=== PATIENT | male | born 1995 | race African-American/Black ===

== ENCOUNTER 2020-03-21 09:29 | Emergency (ER) | payer OTHER, SELFPAY ==
[2020-03-21] MEDS ORDERED: Haloperidol 1 MG TAB ONE (10:03)
[2020-03-21 10:25] LABS: #Lymphocytes 1.2 thou/uL (1.20-3.40); #Monocytes 0.5 thou/uL (0.11-0.59); #Neutrophils 4.5 thou/uL (1.40-6.50); %Basophils 0.4 % (0.0-1.0); %Eosinophils 0.6 % (0.0-10.0); %Lymphocytes 18.4 % (21.0-51.0); %Monocytes 8.6 % (0.0-10.0); %Neutrophils 72.1 % (42.0-75.0); Hemoglobin 14.1 g/dL (14.0-18.0); Mean Corpuscular HGB CONC 34.2 g/dL (32.0-36.0); Mean Corpuscular Hemoglobin 33.7 pg (27.0-31.0); Mean Corpuscular Volume 98.5 fL (78.0-98.0); Mean Platelet Volume 7.4 fL (7.4-10.4); Platelet Count 141 thou/uL (130-400); RBC Distribution Width 11.5 % (11.5-14.5); Red Blood Cell (RBC) Count 4.19 mill/uL (4.70-6.10); White Blood Cell (WBC) Count 6.3 thou/uL (4.8-10.8)
[2020-03-21 11:02] LABS: ALT (SGPT) 40 U/L (8-55); AST (SGOT) 23 U/L (5-34); Albumin 4.1 g/dL (3.5-5.0); Alkaline Phosphatase 84 U/L (40-110); Anion Gap 12 mmol/L (10-20); BUN (Urea Nitrogen) 11 mg/dL (8.9-20.6); Bilirubin, Total 5.1 mg/dL (0.2-1.2); Calc. Creatinine Clearance 0 mL/min (70-130); Calcium 9.2 mg/dL (7.8-10.44); Carbon Dioxide 30 mmol/L (22-29); Chloride 101 mmol/L (98-107); Globulin 3.2 g/dL (2.4-3.5); Glucose 125 mg/dL (70-105); Lipase 11 U/L (8-78); Potassium 3.7 mmol/L (3.5-5.1); Protein, Total 7.3 g/dL (6.0-8.3); Sodium 139 mmol/L (136-145)
[2020-03-21 12:17] LABS: Bilirubin Negative (Negative); Blood, Urine Negative (Negative); Clarity Clear (Clear); Glucose, Urine (Dipstick) Normal (Negative); Ketone, Urine Negative (Negative); Leukocyte Negative Leu/uL (Negative); Nitrite Negative (Negative); Protein, Urine (Dipstick) 10 mg/dL (Neg-Trace); Specific Gravity, Urine 1.018 (1.002-1.036); Urobilinogen 3 mg/dL (Less than 2)
[2020-03-21] MEDS ORDERED: Ketorolac Tromethamine 30 MG/ML VIAL ONE ×2 (12:25→12:26)
== END 2020-03-21 12:58 | disposition home or self-care (01) ==
LOC: ERS 09:29
DX: R10.12 Left upper quadrant pain (principal)
CPT/HCPCS: 36415; 80053; 81003; 83690; 85025; 87086; 96372; 99284; J1885

== ENCOUNTER 2020-08-17 18:07 | Emergency (ER) | payer SELFPAY | END 2020-08-17 18:35 | disposition home or self-care (01) | LOC: ERS 18:07 | DX: S93.401A Sprain of unspecified ligament of right ankle, initial encounter (principal); X50.1XXA Overexertion from prolonged static or awkward postures, initial encounter | CPT/HCPCS: 99281 ==

== ENCOUNTER 2020-12-05 10:28 | Outpatient (CLI) | payer SELFPAY ==
[2020-12-05 12:03] LABS: SARS-CoV-2 NAA Rapid Test Not Detected (NotDetected)
== END 2020-12-05 10:29 | disposition home or self-care (01) ==
LOC: LABBT 10:28
PROVIDERS: ATTEND Orthopaedic Surgery
DX: Z01.812 Encounter for preprocedural laboratory examination (principal); Z20.822 Contact with and (suspected) exposure to COVID-19
CPT/HCPCS: U0002

== ENCOUNTER 2020-12-06 10:47 | Day surgery (SDC) | payer OTHER, SELFPAY ==
[2020-12-05 11:54] VITALS: BMI 22.8
[2020-12-06] MEDS ORDERED: Fentanyl 100 MCG/2 ML VIAL ONE (12:01)
[2020-12-06] MEDS ORDERED: Midazolam HCl 2 mg/2 ml Vial ONE (12:01)
[2020-12-06] MEDS ORDERED: Ketamine 50 MG/ML (10ML VIAL) ONE (12:32)
[2020-12-06] MEDS ORDERED: HYDROmorphone 0.5 MG/0.5 ML SYRINGE ONE (12:33)
[2020-12-06] MEDS ORDERED: Bupivacaine PF 0.5% 30 ML VIAL ONE (12:34)
[2020-12-06] MEDS ORDERED: Lidocaine 1% PF 5 ML VIAL ONE (12:40)
[2020-12-06] MEDS ORDERED: Ondansetron PF 4 MG/2 ML Vial ONE (12:40)
[2020-12-06] MEDS ORDERED: Dexamethasone 20 MG/5 ML VIAL ONE (12:40)
[2020-12-06] MEDS ORDERED: Glycopyrrolate 0.2 MG/ML 5 ML SYRINGE ONE (12:40)
[2020-12-06] MEDS ORDERED: PROPOFOL 200 MG/20 ML VIAL ONE (12:40)
[2020-12-06] MEDS ORDERED: PHENYLEPHRINE-NS 100 MCG/ML 10 ML SYRINGE ONE (12:40)
== END 2020-12-06 16:05 | disposition home or self-care (01) ==
LOC: SDC 10:47
PROVIDERS: ATTEND Orthopaedic Surgery
PROC: 0PSJ04Z Reposition Left Radius with Internal Fixation Device, Open Approach (ICD-10-PCS; principal; 2020-12-06)
DX: S52.322A Displaced transverse fracture of shaft of left radius, initial encounter for closed fracture (principal); V29.9XXA Motorcycle rider (driver) (passenger) injured in unspecified traffic accident, initial encounter
CPT/HCPCS: 76000; C1713; J0690; J1100; J1170; J2250; J2405; J2704; J3010; S0020